=== PATIENT | male | born 1975 | race African-American/Black ===

== ENCOUNTER 2017-04-02 23:58 | Emergency (ER) | payer OTHER ==
[2017-04-03] MEDS ORDERED: KETOROLAC 30 MG/ML 1 ML VIAL IVP STA (01:24)
[2017-04-03] MEDS ORDERED: ACETAMINOPHEN TAB 500 MG TAB PO STA (01:24)
[2017-04-03] MEDS ORDERED: SODIUM CHLORIDE 0.9% 1,000 ML IV STA (01:24)
--- NOTE | 2017-04-03 01:48 | CT ---
EXAMINATION TYPE: CT brain wo con DATE OF EXAM: 04/03/2017 COMPARISON: 06/03/2012 HISTORY: Left side headache CT DLP: 1029.90 mGycm. Automated Exposure Control for Dose Reduction was Utilized. TECHNIQUE: CT scan of the head is performed without contrast. FINDINGS: Ventricles of normal size. There is no mass effect nor midline shift. There is no sign of i ntracranial hemorrhage. The calvarium is intact. IMPRESSION: Negative CT scan of the brain. No change..
[2017-04-03 02:09] LABS: Appearance,Urine Clear (Clear); Bilirubin,Urine Negative (Negative); Glucose,Urine (UA) Negative (Negative); Ketones,Urine Negative (Negative); Leukocyte Esterase,Urine Negative (Negative); Nitrite,Urine Negative (Negative); Protein,Urine Negative (Negative); Specific Gravity,Urine 1.014 (1.001-1.035); UA Billing (MACRO vs. MICRO) CHEM; Urobilinogen,Urine <2.0 mg/dL (<2.0)
[2017-04-03 02:13] LABS: CH 32.3; CHCM 34.6; HCT 43.1 % (39.0-53.0); HGB 14.1 gm/dL (13.0-17.5); MCH 30.8 pg (25.0-35.0); MCHC 32.7 g/dL (31.0-37.0); Mean Platelet Volume 8.3; RBC 4.58 m/uL (4.30-5.90); RDW 13.8 % (11.5-15.5); WBC 7.6 k/uL (3.8-10.6); WBC (Perox) 7.66
[2017-04-03 02:20] LABS: Anion Gap 8 mmol/L; Blood Urea Nitrogen 11 mg/dL (9-20); Calcium 9.2 mg/dL (8.4-10.2); Carbon Dioxide 26 mmol/L (22-30); Chloride 104 mmol/L (98-107); Glucose 91 mg/dL (74-99); Non-African American GFR(MDRD) >60 (>60 ml/min/1.73 sqM); Potassium 3.8 mmol/L (3.5-5.1); Sodium 138 mmol/L (137-145)
--- NOTE | 2017-04-03 02:50 | ED ---
Neck Injury/Pain HPI - General Chief Complaint: Neck Pain/Injury Stated Complaint: Head/Neck Pain Time Seen by Provider: 04/03/17 00:57 Source: RN notes reviewed, old records reviewed Mode of arrival: ambulatory Limitations: no limitations - History of Present Illness Initial Comments: 41 year old male presents to ED after having spinal injections 3 weeks ago, with CC of paresthesias on left side of body including left sided headache. Patient reports that he has a severe headache today and brought him into ED. Patient states that he takes percocet regularly for pain management. Patient states that he has no fever or chills, denies any saddle anesthesia, and urinary or bowel incontence. Patient reports he has full motor function of extremeties, denies weakness. Patient has had normal bowel movements and denies any other symptoms. - Related Data Home Medications Medication Instructions Recorded Confirmed Pregabalin [Lyrica] 150 mg PO BID 09/15/15 05/28/16 oxyCODONE-APAP 10-325MG [Percocet 1 tab PO Q12HR PRN 09/15/15 05/28/16 10-325 mg] Previous Rx's Medication Instructions Recorded Amoxic-Pot Clav 875-125Mg 1 tab PO Q12HR #20 tablet 05/29/16 [Augmentin 875-125] Allergies Allergy/AdvReac Type Severity Reaction Status Date / Time No Known Allergies Allergy Verified 04/03/17 00:04 Review of Systems ROS Statement: Those systems with pertinent positive or pertinent negative responses have been documented in the HPI. ROS Other: All systems not noted in ROS Statement are negative. Past Medical History Past Medical History: No Reported History History of Any Multi-Drug Resistant Organisms: None Reported Past Surgical History: Orthopedic Surgery Past Psychological History: No Psychological Hx Reported Smoking Status: Current every day smoker Past Alcohol Use History: Occasional Past Drug Use History: None Reported General Exam - General Exam Comments Initial Comments: Well appearing 41 year old male, patient was sleeping when I went into exam room. Limitations: no limitations General appearance: alert, in no apparent distress Head exam: Present: atraumatic, normocephalic, normal inspection Eye exam: Present: normal appearance, PERRL, EOMI. Absent: scleral icterus, conjunctival injection, periorbital swelling ENT exam: Present: normal exam, mucous membranes moist Neck exam: Present: normal inspection. Absent: tenderness, meningismus, lymphadenopathy Respiratory exam: Present: normal lung sounds bilaterally. Absent: respiratory distress, wheezes, rales, rhonchi, stridor Cardiovascular Exam: Present: regular rate, normal rhythm, normal heart sounds. Absent: systolic murmur, diastolic murmur, rubs, gallop, clicks GI/Abdominal exam: Present: soft, normal bowel sounds. Absent: distended, tenderness, guarding, rebound, rigid Extremities exam: Present: normal inspection, full ROM, normal capillary refill. Absent: tenderness, pedal edema, joint swelling, calf tenderness Back exam: Present: normal inspection Neurological exam: Present: alert, oriented X3, CN II-XII intact Expanded Patient oriented to: Present: person, place, time Speech: Present: fluid speech Cranial nerves: EOM's Intact: Normal Cerebellar function: Finger to Nose: Normal Upper motor neuron: Pronator Drift: Normal Sensory exam: Upper Extremity Light Touch: Normal, Lower Extremity Light Touch: Normal Motor strength exam: RUE: 5, LUE: 5, RLE: 5, LLE: 5 Eye Response: (4) open spontaneously Motor Response: (6) obeys commands Verbal Response: (5) oriented Yon Total: 15 Psychiatric exam: Present: normal affect, normal mood Skin exam: Present: warm, dry, intact, normal color. Absent: rash Course Vital Signs 04/03/17 04/03/17 00:02 03:14 Temperature 97.1 F L 97.8 F Pulse Rate 79 65 Respiratory 16 18 Rate Blood Pressure 142/84 158/91 O2 Sat by Pulse 98 98 Oximetry Medical Decision Making - Medical Decision Making This is a 41 year old male with CC of headache and left side paresthesais for 3 weeks after spinal procedure. No saddle anesthesias, and patient is neurologically intact. Patient labs were reviewed and CT scan are negative. Patient given toradol with improvement of headache, patient was sleeping and resting comfortably each time I examined him. Patient will follow up with neurologist, and return parameters discussed. - Lab Data Result diagrams: 04/03/17 01:50 04/03/17 01:50 Lab Results 04/03/17 04/03/17 04/03/17 Range/Units 01:50 01:50 01:50 WBC 7.6 (3.8-10.6) k/uL RBC 4.58 (4.30-5.90) m/uL Hgb 14.1 (13.0-17.5) gm/dL Hct 43.1 (39.0-53.0) % MCV 94.0 (80.0-100.0) fL MCH 30.8 (25.0-35.0) pg MCHC 32.7 (31.0-37.0) g/dL RDW 13.8 (11.5-15.5) % Plt Count 300 (150-450) k/uL Neutrophils % (Manual) 33 % Lymphocytes % (Manual) 53 % Monocytes % (Manual) 11 % Eosinophils % (Manual) 2 % Basophils % (Manual) 1 % Neutrophils # (Manual) 2.51 (1.3-7.7) k/uL Lymphocytes # (Manual) 4.03 (1.0-4.8) k/uL Monocytes # (Manual) 0.84 (0-1.0) k/uL Eosinophils # (Manual) 0.15 (0-0.7) k/uL Basophils # (Manual) 0.08 (0-0.2) k/uL Nucleated RBCs 0 (0-0) /100 WBC Manual Slide Review Performed Large Platelets Present Poikilocytosis (manual Present Anisocytosis (manual) Not Reportable Target Cells Not Reportable Sodium 138 (137-145) mmol/L Potassium 3.8 (3.5-5.1) mmol/L Chloride 104 (98-107) mmol/L Carbon Dioxide 26 (22-30) mmol/L Anion Gap 8 mmol/L BUN 11 (9-20) mg/dL Creatinine 1.00 (0.66-1.25) mg/dL Est GFR (MDRD) Af Amer >60 (>60 ml/min/1.73 sqM) Est GFR (MDRD) Non-Af >60 (>60 ml/min/1.73 sqM) Glucose 91 (74-99) mg/dL Calcium 9.2 (8.4-10.2) mg/dL Urine Color Yellow Urine Appearance Clear (Clear) Urine pH 6.0 (5.0-8.0) Ur Specific Wallace 1.014 (1.001-1.035) Urine Protein Negative (Negative) Urine Glucose (UA) Negative (Negative) Urine Ketones Negative (Negative) Urine Blood Negative (Negative) Urine Nitrite Negative (Negative) Urine Bilirubin Negative (Negative) Urine Urobilinogen <2.0 (<2.0) mg/dL Ur Leukocyte Esterase Negative (Negative) Urine Opiates Screen Detected H (NotDetected) Ur Oxycodone Screen Detected H (NotDetected) Urine Methadone Screen Not Detected (NotDetected) Ur Propoxyphene Screen Not Detected (NotDetected) Ur Barbiturates Screen Not Detected (NotDetected) U Tricyclic Antidepress Not Detected (NotDetected) Ur Phencyclidine Scrn Not Detected (NotDetected) Ur Amphetamines Screen Not Detected (NotDetected) U Methamphetamines Scrn Not Detected (NotDetected) U Benzodiazepines Scrn Not Detected (NotDetected) Urine Cocaine Screen Not Detected (NotDetected) U Marijuana (THC) Screen Not Detected (NotDetected) Disposition Clinical Impression: Paresthesias Disposition: HOME SELF-CARE Condition: Good Instructions: Paresthesia (ED) Additional Instructions: Follow up with your neurologist that completed the spinal procedure. Take her pain medicine as prescribed. Return to the emergency department if any alarming signs or symptoms occur. Referrals: None,Stated [Primary Care Provider] - 1-2 days Meg Taveras MD [STAFF PHYSICIAN] - 1-2 days Time of Disposition: 02:49
[2017-04-03 03:15] VITALS: BP 158/91; PULSE 65; RESP 18; TEMP 97.8
[2017-04-03 06:16] LABS: Add Differential Manual Differential
[2017-04-03 06:21] LABS: Nucleated Red Blood Cells 0 /100 WBC (0-0); Total Cells Counted 100
[2017-04-03 06:25] LABS: Large Platelets Present
[2017-04-03 07:37] LABS: Manual Review Performed
== END 2017-04-03 03:14 | disposition home or self-care (01) ==
LOC: EC 23:58
DX: R20.2 Paresthesia of skin (principal); R51 Headache; M54.2 Cervicalgia; R40.2142 Coma scale, eyes open, spontaneous, at arrival to emergency department; R40.2362 Coma scale, best motor response, obeys commands, at arrival to emergency department; R40.2252 Coma scale, best verbal response, oriented, at arrival to emergency department; F17.200 Nicotine dependence, unspecified, uncomplicated; Z79.899 Other long term (current) drug therapy; Z53.20 Procedure and treatment not carried out because of patient's decision for unspecified reasons
CPT/HCPCS: 99284 ×2; 96374 ×2; 96361 ×2; 36415; 80048; 85025; 81003; 80306; 70450; J1885

== ENCOUNTER 2017-09-06 03:58 | Observation (INO) | payer OTHER ==
[2017-09-06] MEDS ORDERED: ACETAMINOPHEN TAB 500 MG TAB PO STA (04:08)
[2017-09-06] MEDS ORDERED: SODIUM CHLORIDE 0.9% 1,000 ML IV STA ×2 (04:08→09:00)
[2017-09-06] MEDS ORDERED: cefTRIAXone IN SWFI 2,000 MG/20 ML SYRINGE IVP STA (04:09)
[2017-09-06] MEDS ORDERED: ALBUTEROL NEBULIZED 2.5 MG/3 ML INHALATION STA (04:10)
[2017-09-06] MEDS ORDERED: MORPHINE SULFATE 4 MG/ML SYRINGE IVP STA (04:22)
[2017-09-06 04:34] LABS: Basophils # (A) 0.1 k/uL (0-0.2); Basophils % (A) 1 %; Eosinophils # (A) 0.4 k/uL (0-0.7); Eosinophils % (A) 6 %; HCT 42.2 % (39.0-53.0); HGB 14.4 gm/dL (13.0-17.5); Lymphocytes # (A) 1.6 k/uL (1.0-4.8); Lymphocytes % (A) 24 %; MCH 30.6 pg (25.0-35.0); MCV 89.9 fL (80.0-100.0); Mean Platelet Volume 8.1; Monocytes # (A) 0.3 k/uL (0-1.0); Monocytes % (A) 4 %; Neutrophils # (A) 4.2 k/uL (1.3-7.7); Neutrophils % (A) 63 %; Platelet Count 272 k/uL (150-450); RDW 13.5 % (11.5-15.5); WBC 6.7 k/uL (3.8-10.6)
[2017-09-06 04:44] LABS: Anion Gap 10 mmol/L; Blood Urea Nitrogen 9 mg/dL (9-20); Calcium 9.5 mg/dL (8.4-10.2); Carbon Dioxide 30 mmol/L (22-30); Chloride 101 mmol/L (98-107); Glucose 106 mg/dL (74-99); Sodium 141 mmol/L (137-145)
--- NOTE | 2017-09-06 05:03 | ED ---
General Adult HPI - General Chief complaint: Upper Respiratory Infection Stated complaint: Chest Pain, cough Time Seen by Provider: 09/06/17 04:01 Source: patient Mode of arrival: ambulatory Limitations: no limitations - History of Present Illness Initial comments: 42 years old male comes in with coughing been bringing up some phlegm had a fever chills been shaking and now his chest and his upper back pain hurting Sunday he is short-winded and it hurts to take a deep breath. He denies any headaches no neck stiffness, no history of meningitis does complain about shortness of breath pain cough so hard that his chest hurts but he has no history of heart disease with a deep breaths transmit his chest worse. Review of system is otherwise unremarkable - Related Data Home Medications Medication Instructions Recorded Confirmed Pregabalin [Lyrica] 150 mg PO BID 09/15/15 05/28/16 oxyCODONE-APAP 10-325MG [Percocet 1 tab PO Q12HR PRN 09/15/15 05/28/16 10-325 mg] Previous Rx's Medication Instructions Recorded Amoxic-Pot Clav 875-125Mg 1 tab PO Q12HR #20 tablet 05/29/16 [Augmentin 875-125] Allergies Allergy/AdvReac Type Severity Reaction Status Date / Time No Known Allergies Allergy Verified 09/06/17 04:06 Review of Systems ROS Statement: Those systems with pertinent positive or pertinent negative responses have been documented in the HPI. ROS Other: All systems not noted in ROS Statement are negative. Past Medical History Past Medical History: No Reported History History of Any Multi-Drug Resistant Organisms: None Reported Past Surgical History: Orthopedic Surgery Additional Past Surgical History / Comment(s): right leg fracture Past Psychological History: No Psychological Hx Reported Smoking Status: Current every day smoker Past Alcohol Use History: Occasional Past Drug Use History: None Reported General Exam - General Exam Comments Initial Comments: General: The patient is awake and alert, in no distress, and does not appear acutely ill. Skin: Skin is warm and dry and no rashes or lesions are noted. Eye: Pupils are equal, round and reactive to light, extra-ocular movements are intact; there is normal conjunctiva bilaterally. Ears, nose, mouth and throat: There are moist mucous membranes and no oral lesions. Neck: The neck is supple, there is no tenderness or JVD. Cardiovascular: There is a regular rate and rhythm. No murmur, rub or gallop is appreciated. Respiratory: To auscultation bilateral, noticed some wheezing and crackles at the bases Gastrointestinal: Soft, non-distended, non-tender abdomen without masses or organomegaly noted. There is no rebound or guarding present. Bowel sounds are unremarkable. Back: There is no tenderness to palpation in the midline. There is no obvious deformity. Musculoskeletal: Normal ROM, no tenderness, There is no pedal edema. There is no calf tenderness or swelling. No cords were appreciated. Neurological: CN II-XII intact, Cranial nerves III through XII are intact. There are no obvious motor or sensory deficits. Coordination appears grossly intact. Speech is normal. Psychiatric: Cooperative, appropriate mood & affect, normal judgment. Limitations: no limitations Course Vital Signs 09/06/17 09/06/17 09/06/17 03:59 04:33 04:36 Temperature 101.1 F H Pulse Rate 107 H 103 H Pulse Rate [ 96 Carrot Grader Inspector ] Respiratory 20 22 Rate Blood Pressure 168/97 O2 Sat by Pulse 93 L Oximetry 09/06/17 09/06/17 09/06/17 04:58 05:19 06:15 Temperature 99.1 F 98.8 F Pulse Rate 115 H 105 H 99 Pulse Rate [ Carrot Grader Inspector ] Respiratory 24 18 Rate Blood Pressure 152/77 117/67 O2 Sat by Pulse 99 94 L Oximetry Patient is reassessed at 6:50 AM and reviewed all his labs his d-dimer, CBC, flu a flu B, chest x-ray are unremarkable he still don't feel right he still feels weak, considering that I recommended to hospitalist to watch him for 24 hours EKG Findings - EKG Comments: EKG Findings:: EKG is normal sinus rhythm ventricular rate is 99 NJ interval is 160 QRS duration is 84 QT/QTC 370/436 and 50 mL EKG does not reveal any ST elevation or ST depression Medical Decision Making - Lab Data Result diagrams: 09/06/17 04:15 09/06/17 04:15 Lab Results 09/06/17 09/06/17 09/06/17 Range/Units 04:15 04:15 04:15 WBC 6.7 (3.8-10.6) k/uL RBC 4.70 (4.30-5.90) m/uL Hgb 14.4 (13.0-17.5) gm/dL Hct 42.2 (39.0-53.0) % MCV 89.9 (80.0-100.0) fL MCH 30.6 (25.0-35.0) pg MCHC 34.0 (31.0-37.0) g/dL RDW 13.5 (11.5-15.5) % Plt Count 272 (150-450) k/uL Neutrophils % 63 % Lymphocytes % 24 % Monocytes % 4 % Eosinophils % 6 % Basophils % 1 % Neutrophils # 4.2 (1.3-7.7) k/uL Lymphocytes # 1.6 (1.0-4.8) k/uL Monocytes # 0.3 (0-1.0) k/uL Eosinophils # 0.4 (0-0.7) k/uL Basophils # 0.1 (0-0.2) k/uL D-Dimer 0.38 (<0.60) mg/L FEU Sodium 141 (137-145) mmol/L Potassium 4.0 (3.5-5.1) mmol/L Chloride 101 (98-107) mmol/L Carbon Dioxide 30 (22-30) mmol/L Anion Gap 10 mmol/L BUN 9 (9-20) mg/dL Creatinine 1.00 (0.66-1.25) mg/dL Est GFR (CKD-EPI)AfAm >90 (>60 ml/min/1.73 sqM) Est GFR (CKD-EPI)NonAf >90 (>60 ml/min/1.73 sqM) Glucose 106 H (74-99) mg/dL Calcium 9.5 (8.4-10.2) mg/dL Urine Color Urine Appearance (Clear) Urine pH (5.0-8.0) Ur Specific Stout (1.001-1.035) Urine Protein (Negative) Urine Glucose (UA) (Negative) Urine Ketones (Negative) Urine Blood (Negative) Urine Nitrite (Negative) Urine Bilirubin (Negative) Urine Urobilinogen (<2.0) mg/dL Ur Leukocyte Esterase (Negative) Influenza Type A RNA (Not Detectd) Influenza Type B (PCR) (Not Detectd) 09/06/17 09/06/17 Range/Units 04:21 06:10 WBC (3.8-10.6) k/uL RBC (4.30-5.90) m/uL Hgb (13.0-17.5) gm/dL Hct (39.0-53.0) % MCV (80.0-100.0) fL MCH (25.0-35.0) pg MCHC (31.0-37.0) g/dL RDW (11.5-15.5) % Plt Count (150-450) k/uL Neutrophils % % Lymphocytes % % Monocytes % % Eosinophils % % Basophils % % Neutrophils # (1.3-7.7) k/uL Lymphocytes # (1.0-4.8) k/uL Monocytes # (0-1.0) k/uL Eosinophils # (0-0.7) k/uL Basophils # (0-0.2) k/uL D-Dimer (<0.60) mg/L FEU Sodium (137-145) mmol/L Potassium (3.5-5.1) mmol/L Chloride (98-107) mmol/L Carbon Dioxide (22-30) mmol/L Anion Gap mmol/L BUN (9-20) mg/dL Creatinine (0.66-1.25) mg/dL Est GFR (CKD-EPI)AfAm (>60 ml/min/1.73 sqM) Est GFR (CKD-EPI)NonAf (>60 ml/min/1.73 sqM) Glucose (74-99) mg/dL Calcium (8.4-10.2) mg/dL Urine Color Yellow Urine Appearance Clear (Clear) Urine pH 7.0 (5.0-8.0) Ur Specific Stout 1.020 (1.001-1.035) Urine Protein Negative (Negative) Urine Glucose (UA) Negative (Negative) Urine Ketones Negative (Negative) Urine Blood Negative (Negative) Urine Nitrite Negative (Negative) Urine Bilirubin Negative (Negative) Urine Urobilinogen <2.0 (<2.0) mg/dL Ur Leukocyte Esterase Negative (Negative) Influenza Type A RNA Not Detected (Not Detectd) Influenza Type B (PCR) Not Detected (Not Detectd) Disposition Clinical Impression: Bronchitis, Fever, Shortness of breath, Hypoxia Disposition: ADMITTED IP TO THIS [facility] Condition: Good Referrals: Nonstaff,Physician [Primary Care Provider] - 1-2 days
--- NOTE | 2017-09-06 05:32 | XR ---
EXAM: XR Chest, 2 Views. CLINICAL HISTORY: Pneumonia TECHNIQUE: Frontal and lateral views of the chest. COMPARISON: No relevant prior studies available. FINDINGS: Lungs: Unremarkable. No consolidation. Pleural spaces: Unremarkable. No pneumothorax. Heart: Unremarkable. No cardiomegaly. Mediastinum: Unremarkable. Bones: Unremarkable. No acute fracture. IMPRESSION: No evidence of active cardiopulmonary abnormality.
[2017-09-06 06:27] LABS: Appearance,Urine Clear (Clear); Bilirubin,Urine Negative (Negative); Blood,Urine Negative (Negative); Color,Urine Yellow; Glucose,Urine (UA) Negative (Negative); Ketones,Urine Negative (Negative); Leukocyte Esterase,Urine Negative (Negative); Nitrite,Urine Negative (Negative); Protein,Urine Negative (Negative); Urobilinogen,Urine <2.0 mg/dL (<2.0)
[2017-09-06] MEDS ORDERED: NALOXONE 0.4 MG/ML 1 ML VIAL IV PRN ×2 (07:04→07:59)
[2017-09-06] MEDS ORDERED: ACETAMINOPHEN TAB 325 MG TAB PO PRN (07:04)
[2017-09-06] MEDS ORDERED: IBUPROFEN 400 MG TAB PO PRN (07:04)
[2017-09-06] MEDS ORDERED: oxyCODONE-APAP 10-325MG 1 EACH TAB PO PRN ×2 (07:07→08:01)
[2017-09-06] MEDS ORDERED: ONDANSETRON 4 MG/2 ML VIAL IVP PRN (07:59)
[2017-09-06] MEDS ORDERED: NICOTINE 14MG/24HR PATCH TRANSDERM STA (08:47)
[2017-09-06 08:53] VITALS: TEMP 98.7
[2017-09-06] MEDS ORDERED: PREGABALIN 100 MG CAP PO SCH (09:00)
[2017-09-06] MEDS ORDERED: PREGABALIN 75 MG CAP PO SCH (09:00)
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
[2017-09-06 13:15] VITALS: BP 137/84; PULSE 73; RESP 20
--- NOTE | 2017-09-06 14:09 | P.DS ---
Providers Date of admission: 09/06/17 07:04 Attending physician: Marleni Paul DO Primary care physician: Physician Nonstaff Hospital Course: 42 years old male presented to the emergency department because of worsening shortness of breath, pleuritic chest pain, cough productive of yellow phlegm. He was in contact with his mother's boyfriend who was sick with upper respiratory symptoms. He has been having fever and shaking chills. His nose has been congested and plugged, he also has been having some sore throat as well. He denies any headaches, no neck stiffness, he denied having any nausea or vomiting, no abdominal pain, no diarrhea, no urinary symptoms. Patient was admitted to the hospital for further monitoring. In the emergency department he had one time fever of 101.1. During the hospitalization he received IV fluids. His fever resolved. He was not treated with any antibiotics because there was no source of infection. On exam all of his vital signs were within normal limits. He was wheezing significantly on chest Auscultation. He Does Smoke More Than a Pack a Day. He Was Advised to Quit and Was Offered Nicotine Patches Which he Is Agreeable to Try. He will be discharged in a stable condition on albuterol inhaler and nicotine patches. Patient Condition at Discharge: Good Plan - Discharge Summary Discharge Rx Participant: No New Discharge Prescriptions: New Acetaminophen Tab [Tylenol] 650 mg PO Q6HR PRN tab PRN Reason: Mild Pain Or Fever > 100.5 Ibuprofen [Motrin] 400 mg PO Q6HR PRN tab PRN Reason: Mild Pain Or Fever > 100.5 Albuterol Inhaler [Ventolin Hfa Inhaler] 1 - 2 puff INHALATION Q6HR PRN #1 inhaler PRN Reason: Shortness Of Breath Nicotine 21Mg/24Hr Patch [Habitrol] 1 each TRANSDERM DAILY #21 patch Continue oxyCODONE-APAP 10-325MG [Percocet 10-325 mg] 1 tab PO QID Pregabalin [Lyrica] 300 mg PO BID Discontinued Ibuprofen [Motrin] 800 mg PO BID Discharge Medication List Acetaminophen Tab [Tylenol] 650 mg PO Q6HR PRN tab 09/06/17 [Rx] Albuterol Inhaler [Ventolin Hfa Inhaler] 1 - 2 puff INHALATION Q6HR PRN #1 inhaler 09/06/17 [Rx] Ibuprofen [Motrin] 400 mg PO Q6HR PRN tab 09/06/17 [Rx] Nicotine 21Mg/24Hr Patch [Habitrol] 1 each TRANSDERM DAILY #21 patch 09/06/17 [ Rx] Pregabalin [Lyrica] 300 mg PO BID 09/06/17 [History] oxyCODONE-APAP 10-325MG [Percocet 10-325 mg] 1 tab PO QID 09/06/17 [History] Follow up Appointment(s)/Referral(s): Nonstaff,Physician [Primary Care Provider] - 1-2 days Patient Instructions/Handouts: Fever in Adults (GEN), Acute Bronchitis (GEN), Dyspnea (GEN), Hypoxia (GEN)
--- NOTE | 2017-09-15 11:43 | CDI ---
Outpatient Documentation Clarification Form Date: 09-15-17 CDS/Pre Owned Sales Manager Name: POP MARTIN Phone: If any questions, call Kimberly Mahmood Dispatch Supervisor at [phone] Patient Name: TRACI CONTI Admit Date: 09-06-17 Discharge Date: 09-06-17 ATTENTION: The [facility] Coding Staff appreciate your assistance in clarifying documentation. Please respond to the clarification below the line at the bottom and electronically sign. The [facility] Coding staff will review the response and follow-up if needed. Please note: Queries are made part of the Legal Health Record. If you have any questions, please contact the Dispatch Supervisor. Dear Dr. Paul, Please document the cause of patient's symptoms if known: for example: -Bronchitis ( acute, chronic, viral, etc.) -Upper Respiratory Infection -your diagnosis -unknown Thank you for your consideration. MTDD
== END 2017-09-06 14:35 | disposition home or self-care (01) ==
LOC: EC 03:58 → 4MS4W 07:04 → 5MS5E 07:20
PROVIDERS: ADMIT Internal Medicine; ATTEND Internal Medicine
DX: R07.2 Precordial pain (principal); R06.02 Shortness of breath; R05 Cough; R09.81 Nasal congestion; R00.0 Tachycardia, unspecified; R06.2 Wheezing; R09.02 Hypoxemia; M54.9 Dorsalgia, unspecified; J02.9 Acute pharyngitis, unspecified; R65.10 Systemic inflammatory response syndrome (SIRS) of non-infectious origin without acute organ dysfunction; F17.210 Nicotine dependence, cigarettes, uncomplicated; E66.9 Obesity, unspecified; Z68.32 Body mass index [BMI] 32.0-32.9, adult; G89.29 Other chronic pain; M25.572 Pain in left ankle and joints of left foot; M79.604 Pain in right leg; Z79.1 Long term (current) use of non-steroidal anti-inflammatories (NSAID); Z79.899 Other long term (current) drug therapy; Z82.49 Family history of ischemic heart disease and other diseases of the circulatory system
CPT/HCPCS: 99284 ×2; 96374 ×2; 96375 ×2; 96361 ×3; 36415; 94640; 93005; 85379; 80048; 85025; 81003; 87040; 87502; 71046; G0378; S4990; J2270; J0696